=== PATIENT | female | born 1990 | race Caucasian/White ===

== ENCOUNTER → 2017-09-12 | Emergency (ER) | payer OTHER ==
[~2017-09-12] VITALS: Ht 170.2 cm; Wt 108.0 kg
[~2017-09-12] MED LIST: AMBIEN10 MG PO; AMOX1TAB12 PO; BUDEO.25 IH; CEFADROXIL500 MG PO; CIPRO500 MG PO; GILTUSS LIQUID237 M1 PO; KETO10TA2 PO; LEVAQUIN500 MG PO; LEVAQUIN750 MG PO; MOTRIN800 MG PO; ORPH100T PO; PREVACID30 MG PO; PROBIOTIC 15 B1 EACH PO; PROTONIX40 MG PO; PROVENTIL HFA6.7 GM IH; PROVENTIL S1 ML/5 MG IH; PROVENTIL3 ML/2.5 M IH; RANITIDINE HCL300 MG PO; TESSALON200 MG PO; TUSSI PRES-B L120 M1 PO; ZITHROMAX500 MG PO; ZOLOFT100 MG; ZOLOFT50 MG PO
== END | disposition left against medical advice (07) ==
LOC: ER 14:38
DX: Z53.20 Procedure and treatment not carried out because of patient's decision for unspecified reasons (principal)

== ENCOUNTER 2017-11-29 18:15 | Emergency (ER) | payer OTHER ==
[~2017-11-29] VITALS: Ht 170.2 cm; Wt 108.0 kg
== END 2017-11-29 21:45 | disposition home or self-care (01) ==
LOC: ER 18:15
DX: S90.852A Superficial foreign body, left foot, initial encounter (principal); W45.8XXA Other foreign body or object entering through skin, initial encounter; Y93.89 Activity, other specified; Y92.89 Other specified places as the place of occurrence of the external cause; Y99.8 Other external cause status

== ENCOUNTER → 2018-01-06 | Emergency (ER) | payer OTHER ==
[~2018-01-06] VITALS: Ht 170.2 cm; Wt 62.6 kg
== END | disposition left against medical advice (07) ==
LOC: ER 23:56
DX: Z53.20 Procedure and treatment not carried out because of patient's decision for unspecified reasons (principal)

== ENCOUNTER 2018-01-10 16:19 | Emergency (ER) | payer OTHER ==
[~2018-01-10] VITALS: Ht 170.2 cm; Wt 108.0 kg
== END 2018-01-10 19:35 | disposition home or self-care (01) ==
LOC: ER 16:19
DX: B34.9 Viral infection, unspecified (principal)

== ENCOUNTER 2018-03-03 11:49 | Emergency (ER) | payer OTHER ==
[~2018-03-03] VITALS: Ht 170.2 cm; Wt 112.5 kg
[2018-03-03] MEDS ORDERED: METFORMIN HCL500 MG (12:11)
[2018-03-03] MEDS ORDERED: SYMBICORT 80/10.2 GM (12:12)
== END 2018-03-03 19:53 | disposition home or self-care (01) ==
LOC: ER 11:49
DX: K29.70 Gastritis, unspecified, without bleeding (principal); N39.0 Urinary tract infection, site not specified

== ENCOUNTER → 2019-10-11 | Emergency (ER) | payer OTHER ==
[~2019-10-11] VITALS: Ht 170.2 cm; Wt 113.4 kg
[~2019-10-11] MED LIST changes: +METFORMIN HCL500 MG; +SYMBICORT 80/10.2 GM
== END | disposition home or self-care (01) ==
LOC: ER 22:27
DX: K52.9 Noninfective gastroenteritis and colitis, unspecified (principal)

== ENCOUNTER 2020-12-22 18:21 | Emergency (ER) | payer OTHER ==
[~2020-12-22] VITALS: Ht 172.7 cm; Wt 112.5 kg
[2020-12-22] MEDS ORDERED: ALBUTEROL2.5 MG/3 M IH (18:37)
== END 2020-12-22 21:49 | disposition home or self-care (01) ==
LOC: ER 18:21
DX: T78.1XXA Other adverse food reactions, not elsewhere classified, initial encounter (principal); R06.02 Shortness of breath

== ENCOUNTER 2021-01-16 11:53 | Emergency (ER) | payer OTHER ==
[~2021-01-16] VITALS: Ht 172.7 cm; Wt 111.1 kg
[~2021-01-16 11:53] MED LIST changes: +ALBUTEROL2.5 MG/3 M IH
[2021-01-16] MEDS ORDERED: BACTRIM DS TAB1 EACH PO (19:03)
== END 2021-01-16 19:39 | disposition home or self-care (01) ==
LOC: ER 11:53
DX: R10.31 Right lower quadrant pain (principal)

== ENCOUNTER 2021-08-18 15:40 | Emergency (ER) | payer OTHER ==
[~2021-08-18] VITALS: Ht 172.7 cm; Wt 111.1 kg
[~2021-08-18 15:40] MED LIST changes: +BACTRIM DS TAB1 EACH PO
== END 2021-08-18 21:19 | disposition home or self-care (01) ==
LOC: ER 15:40
DX: N88.8 Other specified noninflammatory disorders of cervix uteri (principal); N39.0 Urinary tract infection, site not specified

== ENCOUNTER 2021-11-07 16:38 | Emergency (ER) | payer OTHER ==
[~2021-11-07] VITALS: Ht 167.6 cm; Wt 111.1 kg
== END 2021-11-07 18:48 | disposition home or self-care (01) ==
LOC: ER 16:38
DX: J45.901 Unspecified asthma with (acute) exacerbation (principal)

== ENCOUNTER 2022-02-26 04:16 | Emergency (ER) | payer OTHER ==
[~2022-02-26] VITALS: Ht 165.1 cm; Wt 108.0 kg
== END 2022-02-26 10:31 | disposition home or self-care (01) ==
LOC: ER 04:16
DX: J45.901 Unspecified asthma with (acute) exacerbation (principal); Z88.6 Allergy status to analgesic agent; Z91.011 Allergy to milk products; Z91.018 Allergy to other foods

== ENCOUNTER → 2023-10-07 | Emergency (ER) | payer OTHER ==
[~2023-10-07] VITALS: Ht 172.7 cm; Wt 103.4 kg
[~2023-10-07] MED LIST changes: +DOLOGEN CAPLET1 EACH PO; +DOLOGESIC-DF 51 EACH PO; +GLIPIZIDE XL5 MG PO; +TUSNEL LIQUID178 ML PO; +ZOLOFT100 MG PO
[2023-10-07 09:07] LABS: HEMATOCRIT 36.5 % (36.0-45.00); HEMOGLOBIN 11.9 g/dL (12.0-15.00); MEAN CELL VOLUME 73.7 fL (80.00-100.00); MEAN CORPUSCULAR HEMOGLOBIN 24.1 pg (27.00-32.0); MEAN CORPUSCULAR HGB CONC 32.7 g/dl (32.0-36.0); PLATELET COUNT 264 K/uL (150-450); RED BLOOD COUNT 4.95 M/uL (4.00-6.00)
[2023-10-07 10:12] LABS: ALBUMIN 3.1 gm/dL (3.4-5.0); BILIRUBIN TOTAL 0.36 mg/dL (0.3-1.2); CALCIUM 9.2 mg/dL (8.5-10.1); CREATININE SERUM 0.56 mg/dL (0.55-1.02); GFR 126.26; GLOBULINA 5.1 G/DL (2.4-3.5); POTASSIUM 3.79 mEq/L (3.5-5.1); TOTAL PROTEIN 8.2 gm/dL (6.4-8.2)
== END | disposition home or self-care (01) ==
LOC: ER 06:53
PROVIDERS: General Practice
DX: B34.9 Viral infection, unspecified (principal); Z91.018 Allergy to other foods; Z88.6 Allergy status to analgesic agent; Z91.011 Allergy to milk products; Z20.822 Contact with and (suspected) exposure to COVID-19

== ENCOUNTER 2025-09-11 15:17 | Emergency (ER) | payer OTHER ==
[~2025-09-11] VITALS: Ht 172.7 cm; Wt 108.0 kg
[2025-09-11] MEDS ORDERED: GLIPIZIDE XL2.5 MG (15:31)
[2025-09-11] MEDS ORDERED: 0.9 % SODIUM CHLORIDE 1,000 ML IV SCH (16:00)
[2025-09-11] MEDS ORDERED: INSULIN LISPRO 1,000 UNIT/10 ML UNITS SUBCUTANEO ONE (18:15)
[2025-09-11 19:16] LABS: BASO % 0.4 % (0.1-1.2); EOS # 0.69 (0.04-0.54); EOS % 5.1 % (0.7-7.0); LYMPH # 4.22 (1.18-3.74); LYMPH % 31.3 % (19.3-53.1); MEAN PLATELET VOLUME 9.80 fl (9.4-12.4); MONO # 0.48 (0.24-0.82); MONO % 3.6 % (4.7-12.5); NEUT # 7.97 (1.56-6.13); NEUT % 59.2 % (34.0-71.1); RED CELL DISTRIBUTION WIDTH 12.6 % (11.6-14.4)
[2025-09-11 19:35] LABS: URINE BILIRRUBIN Negative (NEGATIVE); URINE BLOOD Small; URINE COLOR Yellow; URINE KETONE Trace (NEGATIVE); URINE LEUKOCYTE Moderate; URINE NITRATE Negative; URINE PROTEIN 30 (NEGATIVE); URINE UROBILINOGEN 1.0 E.U./dl
[2025-09-11 19:37] LABS: URINE CAST 2.83 uL (0.0-1.40); URINE RBC 21.5 uL (0.0-20.8); URINE WBC 1199.4 uL (0.0-23.2)
[2025-09-11 19:58] LABS: URINE APPEARANCE CLOUDY; URINE BACTERIA > 9821.5 uL (0.0-1933); URINE EPITHELIAL CELLS > 201.7 uL (0.0-38.8); URINE GLUCOSE >=1000 MG/DL (NEGATIVE)
[2025-09-11 20:00] LABS: URINE YEAST FEW /hpf
[2025-09-11] MEDS ORDERED: CEFTRIAXONE SODIUM 1,000 MG VIAL IV ONE (20:30)
[2025-09-11 21:01] LABS: ALT/SGPT 39.0 U/L (12-78); AST/SGOT 33.0 U/L (15-37); BILIRUBIN TOTAL 0.61 mg/dL (0.3-1.2); BUN CREA RATIO 11.0 (7.0-25.0); CREATININE SERUM 0.55 mg/dL (0.55-1.02); GFR 127.29; GLOBULINA 4.9 G/DL (2.4-3.5); OSMOLALITY SERUM 285.0 MOSM/KG (275-295)
[2025-09-11 21:08] LABS: GLUCOSE FASTING 201.0 mg/dL (65-100)
[2025-09-11] MEDS ORDERED: METFORMIN HCL500 M3 PO (21:47)
[2025-09-11] MEDS ORDERED: BACTRIM DS TAB1 EACH PO (21:47)
[2025-09-11] MEDS ORDERED: GLIPIZIDE XL2.5 MG PO (21:49)
== END 2025-09-11 22:28 | disposition home or self-care (01) ==
LOC: ER 15:17
PROVIDERS: Student in an Organized Health Care Education/Training Program
DX: E11.65 Type 2 diabetes mellitus with hyperglycemia (principal); Z79.4 Long term (current) use of insulin; Z79.84 Long term (current) use of oral hypoglycemic drugs; N39.0 Urinary tract infection, site not specified; Z87.09 Personal history of other diseases of the respiratory system; Z88.6 Allergy status to analgesic agent; Z91.0110 Allergy to milk products, unspecified; Z91.018 Allergy to other foods